=== PATIENT | female | born 1955 | race Caucasian/White ===

== ENCOUNTER 2016-11-25 19:27 | Emergency (ER) | payer BC ==
[2016-11-25 19:43] VITALS: BP 109/51; PULSE 61; RESP 18; TEMP 97
--- NOTE | 2016-11-25 19:52 | ED ---
General Adult HPI - General Chief complaint: Extremity Injury, Lower Stated complaint: Slip/Fall Ankel Pain Time Seen by Provider: 11/25/16 19:45 Source: patient, RN notes reviewed Mode of arrival: ambulatory Limitations: no limitations - History of Present Illness Initial comments: Patient's a 61-year-old female who presents emergency room today with a chief complaint of a fall that occurred approximate half an hour ago. Does not that she slipped off the deck landing on her ankles bilaterally awkwardly. She does admit to increased pain to both right and left sides. Denies any other complaints or injuries. Denies any other symptoms. Patient denies any recent fever, chills, shortness of breath, chest pain, back pain, abdominal pain, nausea or vomiting, numbness or tingling, dysuria or hematuria, constipation or diarrhea, headaches or visual changes, or any other complaints. - Related Data Home Medications Medication Instructions Recorded Confirmed Escitalopram [Lexapro] 10 mg PO HS 09/03/15 11/25/16 Nadolol [Corgard] 20 mg PO BID 09/03/15 11/25/16 Topiramate [Topamax] 50 mg PO BID 12/23/15 11/25/16 Rizatriptan Benzoate [Maxalt] 10 mg PO DAILY PRN 09/20/16 11/25/16 Allergies Allergy/AdvReac Type Severity Reaction Status Date / Time codeine AdvReac Nausea & Verified 11/25/16 19:43 Vomiting Review of Systems ROS Statement: Those systems with pertinent positive or pertinent negative responses have been documented in the HPI. ROS Other: All systems not noted in ROS Statement are negative. Past Medical History Past Medical History: CVA/TIA, GERD/Reflux Additional Past Medical History / Comment(s): IBS, migraine headaches, TIA 4 yrs. ago, sinus problems, antral ulcer. History of Any Multi-Drug Resistant Organisms: None Reported Past Surgical History: Breast Surgery, Hysterectomy Additional Past Surgical History / Comment(s): 12/24/15 HEMORROIDECTOMY, Brian Fundoplasty, Cataract surg bilaterally with lens implants, RK bilaterally, EGDs- last one 07/31/16, and colonoscopies, R breast bx benign. Past Anesthesia/Blood Transfusion Reactions: Motion Sickness, Postoperative Nausea & Vomiting (PONV) Past Psychological History: No Psychological Hx Reported Additional Psychological History / Comment(s): NO PROBLEMS AT THIS TIME Smoking Status: Never smoker Past Alcohol Use History: None Reported Past Drug Use History: None Reported - Past Family History Mother Family Medical History: Unable to Obtain Additional Family Medical History / Comment(s): Patient was adopted. General Exam - General Exam Comments Initial Comments: General: The patient is awake and alert, in no distress, and does not appear acutely ill. Neck: The neck is supple, there is no tenderness or JVD. Cardiovascular: There is a regular rate and rhythm. No murmur, rub or gallop is appreciated. Respiratory: Lungs are clear to auscultation, respirations are non-labored, breath sounds are equal. No wheezes, stridor, rales, or rhonchi. Musculoskeletal: Patient does have moderate swelling to the right lateral malleolus. Shows good range of motion both plantar and dorsiflexion in the ankles bilaterally. No tenderness to the knees bilaterally. No tenderness down to the right foot. Mild tenderness to the proximal metatarsals of the second through fourth. Patient does have mild tenderness over the lateral malleolus on the left. No tenderness to the medial or lateral malleolus on the right. Tender in the ATFL and right. Sensations intact with pulses equal bilaterally 2+. Neurological: A&O x 3. CN II-XII intact, There are no obvious motor or sensory deficits. Coordination appears grossly intact. Speech is normal. Skin: Skin is warm and dry and no rashes or lesions are noted. Psychiatric: Normal mood and affect. Limitations: no limitations Course Vital Signs 11/25/16 19:40 Temperature 97.0 F L Pulse Rate 61 Respiratory 18 Rate Blood Pressure 109/51 O2 Sat by Pulse 98 Oximetry Medical Decision Making - Medical Decision Making Case discussed in detail with attending physician Dr. Beard. Patient's x-rays reviewed and does show a distal fibula fracture on the right nondisplaced. Results were discussed with the patient is been splinted in a short leg posterior OCL splint. Neurovascular rechecked and intact. Patient's x-rays of the left ankle are negative. X-ray of the left foot does show an avulsion type fracture on the lateral side. Due to splint being on the right patient has had Jonathon wrap placed on the left show she will be able to perform necessary functions. Patient advised to follow-up with orthopedics in the next 2 days. Given crutches. Disposition Clinical Impression: Ankle fracture, right, Foot fracture, left Disposition: HOME SELF-CARE Condition: Good Instructions: Ankle Fracture (ED) Additional Instructions: Please follow-up with the orthopedics in the next 2 days. Please leave splint placed a follow-up appointment. Please continue to ice and elevate the affected areas as discussed. Please return to emergency room if any symptoms increase or worsen or for any other concerns. Referrals: Zohreh Connors DO [Primary Care Provider] - 1-2 days Elver Galarza DO [Doctor of Osteopathic Medicine] - 1-2 days Time of Disposition: 21:00
--- NOTE | 2016-11-25 20:26 | XR ---
EXAMINATION TYPE: 3 views right ankle. 3 views left ankle. 3 views left foot. DATE OF EXAM: 11/25/2016 8:11 PM COMPARISON: NONE HISTORY: 61-year-old female with bilateral ankle and left foot pain and swelling since fall down step s today. FINDINGS: Right ankle: Minimally displaced oblique fracture distal fibular shaft with a nondisplaced fracture of the posteri or malleolus as well. Associated soft tissue swelling. There is also underlying tibiotalar joint effu nancy. Subtalar joint is aligned and there is small delineation to the Achilles tendon. Left ankle: Ankle mortise remains congruent with preservation of the distal tibiofibular overlap. There is mild d orsal hindfoot soft tissue swelling. Subtalar joint is aligned. No acute fracture, subluxation, or di slocation seen. Left foot: Mild degenerative change at the first MTP joint. Small 4 mm ossific density lateral aspect of the ant erior calcaneus on the AP view. Otherwise, no acute fracture, subluxation, or dislocation. IMPRESSION: 1. Right ankle: Minimally displaced oblique fracture distal fibular shaft and a nondisplaced fracture of the posterior malleolus. Consider a medial stress view to ensure that the deltoid ligament remain s intact and exclude a trimalleolar equivalent. 2. Left ankle: No acute osseous abnormality seen. 3. Left foot: Tiny 4 mm ossific density lateral aspect of the anterior calcaneus on the AP view. Find ings could represent a tiny chip fracture or capsular avulsion fracture relating to the calcaneocuboi d joint. Otherwise, no acute osseous abnormality seen.
== END 2016-11-25 21:11 | disposition home or self-care (01) ==
LOC: EC 19:27
DX: S82.831A Other fracture of upper and lower end of right fibula, initial encounter for closed fracture (principal); S92.812A Other fracture of left foot, initial encounter for closed fracture; Z79.899 Other long term (current) drug therapy; Z88.5 Allergy status to narcotic agent; W01.0XXA Fall on same level from slipping, tripping and stumbling without subsequent striking against object, initial encounter; Y92.009 Unspecified place in unspecified non-institutional (private) residence as the place of occurrence of the external cause
CPT/HCPCS: 29515; 99283

== ENCOUNTER → 2016-11-27 | Outpatient (CLI) | payer BC ==
[2016-11-27 12:41] LABS: EKG EKG PERFORMED
[2016-11-27 13:07] LABS: Basophils # (A) 0.1 k/uL (0-0.2); Basophils % (A) 1 %; CH 28.9; CHCM 31.6; Eosinophils # (A) 0.1 k/uL (0-0.7); Eosinophils % (A) 2 %; HCT 40.5 % (34.0-46.0); HDW 2.44; HGB 12.9 gm/dL (11.4-16.0); Luc # (Auto) 0.16; Luc % (Auto) 3; Lymphocytes # (A) 1.8 k/uL (1.0-4.8); Lymphocytes % (A) 27 %; MCH 29.1 pg (25.0-35.0); MCHC 31.7 g/dL (31.0-37.0); MCV 91.8 fL (80.0-100.0); Mean Platelet Volume 8.6; Monocytes # (A) 0.4 k/uL (0-1.0); Monocytes % (A) 5 %; Neutrophils # (A) 4.1 k/uL (1.3-7.7); Neutrophils % (A) 62 %; RBC 4.41 m/uL (3.80-5.40); RDW 12.8 % (11.5-15.5); WBC 6.6 k/uL (3.8-10.6); WBC (Perox) 7.03
[2016-11-27 13:15] LABS: Chloride 112 mmol/L (98-107); Potassium 4.5 mmol/L (3.5-5.1); Sodium 145 mmol/L (137-145)
[2016-11-27 13:34] LABS: Anion Gap 11 mmol/L; Carbon Dioxide 22 mmol/L (22-30)
== END ==
LOC: LABPAT 12:17
PROVIDERS: ATTEND Orthopaedic Surgery
DX: Z01.810 Encounter for preprocedural cardiovascular examination (principal); Z01.812 Encounter for preprocedural laboratory examination
CPT/HCPCS: 80051; 85025; 93005

== ENCOUNTER 2016-11-29 11:49 | Observation (INO) | payer BC ==
--- NOTE | 2016-11-29 08:58 | HP ---
DATE OF ADMISSION: CHIEF COMPLAINT: Right ankle pain. HISTORY OF PRESENT ILLNESS: The patient is a 61-year-old recently retired female who presents after injuring her right ankle on 11/25/2016 after falling down some steps on her deck at home. Initially, she was seen in the emergency room and was placed into a splint for her right ankle. She has been nonweightbearing on it since. She denies previous injury. Past medical history is significant for migraines and hypertension. Past surgical history is negative. CURRENT MEDICATIONS: 1. Luxora. 2. Topamax. 3. Nadolol. She denies drug allergies. Family history is unknown. SOCIAL HISTORY: Negative for current tobacco or alcohol use. A 16-point review of systems otherwise reviewed and is noncontributory. On examination, the patient is approximately 5 foot 5, 120 pounds of mesomorphic habitus. HEENT exam is nonfocal. Neck is supple. She has painless passive motion of her right hip. She is nontender about the right knee and proximal fibula. On examination of her right ankle, she has moderate lateral swelling and ecchymosis. She is tender over the distal fibula. She is also tender about the posterior medial malleolus. Mild medial swelling is noted. No mid or forefoot tenderness is noted. Her distal neurovascular exam appears intact in the right lower extremity. Three views of the right ankle obtained in the office show a lateral malleolar fracture with 1 to 2 mm lateral displacement. There is an additional posterior malleolar fracture with minimal displacement. The medial clear space is 3 mm. IMPRESSION: Right lateral malleolar ankle fracture - mildly displaced. RECOMMENDATIONS: I talked to the patient at length regarding her treatment options. At this point, I recommend proceeding with surgical intervention. We will plan to proceed with open reduction and internal fixation. We will likely keep the patient for a 23-hour hold postoperatively. Risks and benefits were discussed at length in layman's terms.
[~2016-11-29 11:49] MED LIST: ceFAZolin 1,000 MG in DEXTROSE/WATER 1 50ML.BAG IV ONE
[2016-11-29] MEDS ORDERED: SCOPOLAMINE 1.5MG/72HR PATCH TRANSDERM ONE (12:27)
[2016-11-29] MEDS ORDERED: DEXAMETHASONE SOD PHOSPHATE 10 MG/ML 1 ML VIAL IV ONE (12:27)
[2016-11-29] MEDS ORDERED: FAMOTIDINE 20 MG/2 ML VIAL IV PRN (12:27)
[2016-11-29] MEDS ORDERED: LIDOCAINE 1% 20 ML VIAL (10MG/ML) FOR IV START INTRADERMA PRN (12:27)
[2016-11-29] MEDS ORDERED: MIDAZOLAM 2 MG/2 ML VIAL IV PRN (12:27)
[2016-11-29] MEDS: LACTATED RINGERS 1,000 ML IV SCH (12:32)
[2016-11-29] MEDS ORDERED: ONDANSETRON 4 MG/2 ML VIAL IVP ONE (12:34)
[2016-11-29] MEDS ORDERED: PROPOFOL 10 MG/ML 20 ML VIAL IV ONE (13:39)
[2016-11-29] MEDS ORDERED: fentaNYL (PF) 50 MCG/ML 2 ML AMP ONE (13:39)
[2016-11-29] MEDS ORDERED: LIDOCAINE 1% INJ 10MG/ML (20 ML MDV) ONE (13:39)
[2016-11-29] MEDS ORDERED: MIDAZOLAM 2 MG/2 ML VIAL ONE (13:39)
[2016-11-29] MEDS ORDERED: ePHEDrine 50 MG/ML 1 ML AMP ONE (13:39)
[2016-11-29] MEDS ORDERED: GLYCOPYRROLATE 0.2 MG/ML 2 ML VIAL ONE (13:39)
[2016-11-29] MEDS ORDERED: ceFAZolin 1,000 MG in SODIUM CHLORIDE 0.9% 1,000 ML IRRIGATION ONE (14:02)
[2016-11-29] MEDS ORDERED: ONDANSETRON 4 MG/2 ML VIAL IVP PRN (14:51)
[2016-11-29] MEDS ORDERED: MORPHINE SULFATE 2 MG/ML SYRINGE IV PRN ×2 (14:51)
[2016-11-29] MEDS ORDERED: HYDROcodone/APAP 5-325MG 1 EACH TAB PO PRN ×2 (14:51)
[2016-11-29] MEDS ORDERED: NALOXONE 0.4 MG/ML 1 ML VIAL IV PRN (14:51)
--- NOTE | 2016-11-29 14:51 | P.OP ---
Date of Procedure: 11/29/16 Preoperative Diagnosis: Right displaced lateral malleolar ankle fracture Postoperative Diagnosis: Same Procedure(s) Performed: Open reduction and internal fixation right lateral malleolar ankle fracture Implants: Brent 7-hole one third tubular plate Anesthesia: MAYTE Surgeon: Jese Parra Estimated Blood Loss (ml): 10 Pathology: none sent Condition: stable Disposition: PACU Indications for Procedure: The patient is a 61-year-old female who presents after recently falling down the stairs injuring her right ankle. Upon evaluation she was noted have a mildly displaced right lateral malleolar ankle fracture. A discussion of the risks and benefits of operative intervention versus attempted conservative measures was made with patient. She opted to proceed with surgery. Operative risks to include infection, neurovascular injury, development of blood clots, possible need for subsequent procedures was discussed. Informed consent was obtained. Operative Findings: As below Description of Procedure: The patient was brought to the operating room, and after induction of general anesthesia, the right lower extremity was prepped and draped in normal fashion. The tourniquet was inflated to 270 mmHg. A longitudinal incision extending approximately 8 cm was then made centered over the distal fibula. The skin was incised sharply. Subcutaneous tissues were divided bluntly. Electrocautery was used for hemostasis. The fracture site was identified and cleaned of clot and debris. The periosteum was elevated to facilitate exposure. Provisional reduction was obtained with a reduction clamp. An anterior to posterior lag screw was placed utilizing a 3.5 mm cortical screw of the appropriate length. A 7-hole one third tubular plate was placed in a neutralization fashion on the lateral distal fibula. It was attached proximally with 3.5 mm cortical screws the appropriate length and distally with 4.0 mm cancellus screws the appropriate length. Final fluoroscopic views to include AP, lateral, and mortise views showed adequate reduction of the fracture and the ankle mortise. The wound was irrigated normal saline. The subcutaneous tissues reapproximated interrupted 2-0 Vicryl sutures. The skin was reprepped with 3-0 subcuticular strata fix suture. Skin tape and adhesive was applied. A sterile dressing was applied in addition to a bulky splint. The tourniquet was deflated less than 45 minutes total tourniquet time. The patient was awoken from general anesthesia and transferred to the recovery room in good condition. Blood loss was estimated at 10 mL. No complications were incurred. Sponge and needle counts were correct in the case.
[2016-11-29] MEDS: HYDROmorphone 1 MG/ML 1 ML SYRINGE IVP PRN ×2 (14:58→15:05)
[2016-11-29] MEDS ORDERED: KETOROLAC 30 MG/ML 1 ML VIAL IVP ONE (15:20)
--- NOTE | 2016-11-29 15:32 | XR ---
EXAMINATION TYPE: XR ankle limited RT DATE OF EXAM: 11/29/2016 2:48 PM COMPARISON: 11/25/2016 HISTORY: ORIF right ankle TECHNIQUE: 2 views submitted FINDINGS: Postsurgical changes seen involving the distal fibula. Alignment near-anatomic. One screw d oes appear to be outside of the fixation plate. IMPRESSION: Postoperative change
[2016-11-29 15:47] VITALS: RESP 16
[2016-11-29] MEDS: ceFAZolin 2 GM in SODIUM CHLORIDE 0.9% 100 ML IVPB SCH (23:54)
[2016-11-30] MEDS: MORPHINE SULFATE 4 MG/ML SYRINGE IV PRN ×2 (00:05→05:20)
[2016-11-30] MEDS: ceFAZolin 2 GM in SODIUM CHLORIDE 0.9% 100 ML IVPB SCH (05:19)
--- NOTE | 2016-11-30 08:48 | FL ---
Fluoroscopy HISTORY: Pain 9 seconds fluoroscopy time supplied to the referring clinician. 2 intraoperative C-arm images docume nt the procedure. See dictated report from orthopedic surgery.
[2016-11-30] MEDS ORDERED: ASPIRIN 325 MG TAB PO SCH (09:00)
--- NOTE | 2016-11-30 11:33 | P.PN ---
Subjective Principal diagnosis: Status post ORIF right lateral malleolus ankle fracture Patient seen today resting in her hospital bed, she appears to be no acute distress. Patient's pain is well-controlled. She denies chest pain, lightheadedness, fever chills. Objective - Vital Signs Vital signs: Vital Signs Temp 98.1 F 11/30/16 07:00 Pulse 62 11/30/16 08:00 Resp 16 11/30/16 08:00 BP 93/50 11/30/16 09:00 Pulse Ox 97 11/30/16 07:00 Intake & Output 11/29/16 11/30/16 11/30/16 18:59 06:59 18:59 Intake Total 1301 250 Output Total 10 200 200 Balance 1291 50 -200 Weight 54.431 kg Intake: IV 1061 Intake, IV Titration 250 Amount Lactated Ringers 1,000 ml 250 @ 20 mls/hr IV .Q24H WATSON Rx#:[id number] Oral 240 Output: Urine 200 200 Estimated Blood Loss 10 Other: Voiding Method Toilet Toilet # Voids 1 1 - Exam Right lower extremity: Splint is in good position, no significant ecchymosis or swelling present in the toes. She is able to wiggle all the toes with no difficulty. Her sensation to light touch is intact. Cap refills less than 3 seconds. Assessment and Plan Plan: Assessment: 1. Postop day #1 status post ORIF right lateral malleolar ankle fracture Plan: 1. Pain control, will be discharged home on oral medication 2. GI and DVT prophylaxis, aspirin 325 mg twice a day for 2 weeks 3. Nonweightbearing right lower extremity, utilize crutches 4. Discussed need for ice and elevation often 5. Discharge planning: She'll be discharged home today Time with Patient: Less than 30
--- NOTE | 2016-11-30 11:39 | P.DS ---
Providers Date of admission: 11/30/16 01:02 Expected date of discharge: 11/30/16 Attending physician: Jese Parra Primary care physician: Zohreh Riverabagh [facility] Course: Date of admission: 11/29/2016 Date of discharge: 11/30/2016 Admission diagnosis: Status post ORIF right lateral malleolus ankle fracture Discharge diagnosis: Same Attending physician: Dr. Parra Surgical procedures: ORIF right lateral malleolus ankle fracture Brief history: Patient is a 61-year-old female who is seen and evaluated in the outpatient setting by Dr. Parra after sustaining a fall in an ankle fracture to her right side. It was decided that surgical treatment would be the best option for this patient, she was scheduled for surgery for 11/29/2016. Hospital course: Details of patient's surgery can be found in operative report. Patient tolerated the procedure well and was subsequently transported to orthopedic floor. Patient's orthopeidc and medical care was provided daily. Patient had daily laboratory tests performed for evaluation of overall blood counts. Patient had daily physical therapy to include strengthening range of motion as well as education with walker ambulation. Patient was treated with aspirin for their postoperative DVT prophylaxis during their inpatient stay. Patient was noted to have a relatively uneventful postoperative course. Patient reported satisfactory pain control with oral pain medications by postoperative day 0. Patient showed satisfactory progress with physical therapy. Patient moved steadily through the program and had no difficulty meeting the goals by postoperative day 1. Given patient's otherwise satisfactory course and having met physical therapy goals, plan is to discharge patient home on postoperative day 1. Discharge condition/disposition: Patient will be discharged home in stable condition. Discharge medications: Instructions are given on resumption of patient's normal daily medications per primary care recommendation, in addition patient will be prescribed [place] 5 mg/325 mg, aspirin 325 mg. Discharge instructions: 1. Wound care and infection precautions, keep incision dry and covered while showering, no lotions, creams, moisturizers. No soaking, tubs, pools, hottubs. Do not scrub over the incision. 2. Nonweightbearing right lower extremity 3. Ice and elevate when necessary. Do not exceed 20 minutes per hour with ice pack. 4. Pain meds and anticoagulants per prescription. 5. Pain medication has potential to cause constipation. Increase oral fluid and fiber intake. Contact primary care provider if you have not had a bowel movement within 48 hours after discharge 6. No anti-inflammatory medication until discussed at first post operative visit, this including Motrin, Aleve, Mobic, Diclofenac, Aspirin. 7. Follow up in office at 2 weeks postop with Vadim Cleaning PA-C 8. Follow up with your primary care doctor 7-10 days after discharge. 9. Contact [facility] with any questions, . Procedures: Open reduction internal fixation right lateral malleolus ankle fracture Patient Condition at Discharge: Good Plan - Discharge Summary New Discharge Prescriptions: Aspirin 325 mg PO BID #40 tab Hydrocodone/Acetaminophen [[place] 5-325] 1 each PO Q6HR PRN #40 tab PRN Reason: Pain Discharge Medication List Escitalopram [Lexapro] 10 mg PO HS 09/03/15 [History] Nadolol [Corgard] 20 mg PO BID 09/03/15 [History] Topiramate [Topamax] 50 mg PO BID 12/23/15 [History] Rizatriptan Benzoate [Maxalt] 10 mg PO DAILY PRN 09/20/16 [History] Ergocalciferol (Vitamin D2) [Vitamin D2] 50,000 unit PO SA 11/28/16 [History] Omeprazole 40 mg PO DAILY 11/28/16 [History] Potassium Chloride [Klor-Con 20] 20 meq PO DAILY 11/28/16 [History] Aspirin 325 mg PO BID #40 tab 11/30/16 [Rx] Hydrocodone/Acetaminophen [[place] 5-325] 1 each PO Q6HR PRN #40 tab 11/30/16 [Rx] Follow up Appointment(s)/Referral(s): Braeden Cleaning PAC [PHYSICIAN LINE MAINTAINER] - 2 Weeks Activity/Diet/Wound Care/Special Instructions: Orthopedic discharge instructions: 1. Do not remove splint at this time 2. Keep splint dry and clean, covered when showering 3. Nonweightbearing right lower extremity, utilize crutches 4. Utilize aspirin 325 mg twice a day until notified 5. Ice and elevate foot often 6. Follow-up with [facility] in 2 weeks Discharge Disposition: HOME SELF-CARE
[2016-11-30 15:19] VITALS: BP 104/54; PULSE 81; TEMP 99
[2016-11-30] MEDS: LACTATED RINGERS 1,000 ML IV SCH (15:44)
== END 2016-11-30 19:59 | disposition home or self-care (01) ==
LOC: OR 11:49 → 3SUR 14:48 → OR 11-30 01:02 → 3SUR 11-30 01:02
PROVIDERS: ADMIT Orthopaedic Surgery; ATTEND Orthopaedic Surgery
DX: S82.61XA Displaced fracture of lateral malleolus of right fibula, initial encounter for closed fracture (principal); W10.8XXA Fall (on) (from) other stairs and steps, initial encounter; Y92.008 Other place in unspecified non-institutional (private) residence as the place of occurrence of the external cause; I10 Essential (primary) hypertension
CPT/HCPCS: 73600; 27792; G0378; C1713; J2250; J2270 ×2; J1100; J0690 ×4; J2405; J2001; J3010; J1885; J1170; J2704; 96374

== ENCOUNTER 2017-01-29 11:52 | Emergency (ER) | payer BC ==
[2017-01-29 12:05] VITALS: RESP 16
[2017-01-29] MEDS ORDERED: ONDANSETRON 4 MG/2 ML VIAL IVP STA (12:16)
[2017-01-29] MEDS ORDERED: MORPHINE SULFATE 2 MG/ML SYRINGE IVP STA (12:16)
[2017-01-29] MEDS ORDERED: KETOROLAC 30 MG/ML 1 ML VIAL IVP STA (12:16)
[2017-01-29] MEDS ORDERED: SODIUM CHLORIDE 0.9% 1,000 ML IV STA (12:16)
[2017-01-29 12:48] LABS: Basophils # (A) 0.1 k/uL (0-0.2); Basophils % (A) 1 %; CHCM 32.1; Eosinophils # (A) 0.2 k/uL (0-0.7); Eosinophils % (A) 2 %; HDW 2.22; HGB 13.6 gm/dL (11.4-16.0); Luc # (Auto) 0.21; Luc % (Auto) 3; Lymphocytes # (A) 2.3 k/uL (1.0-4.8); Lymphocytes % (A) 36 %; MCH 28.6 pg (25.0-35.0); MCHC 31.5 g/dL (31.0-37.0); MCV 90.8 fL (80.0-100.0); Mean Platelet Volume 8.1; Monocytes # (A) 0.3 k/uL (0-1.0); Monocytes % (A) 5 %; Neutrophils # (A) 3.4 k/uL (1.3-7.7); Neutrophils % (A) 52 %; RBC 4.74 m/uL (3.80-5.40); RDW 13.2 % (11.5-15.5); WBC 6.5 k/uL (3.8-10.6); WBC (Perox) 6.38
--- NOTE | 2017-01-29 12:48 | ED ---
Abdominal Pain HPI - General Chief Complaint: Abdominal Pain Stated Complaint: back pain Time Seen by Provider: 01/29/17 12:12 Source: patient, family, RN notes reviewed Mode of arrival: ambulatory Limitations: no limitations - History of Present Illness Initial Comments: 61-year-old female presents emergency Department template left flank pain. Patient is felt like she had some urinary urgency frequency this morning but states that she developed severe left flank pain. She has a history kidney stones. She states the pain feels very similar. Patient states that she now has nausea and vomiting. Patient unable take anything for the pain after the pain started but did take some acetaminophen earlier this morning. Patient denies fever, chills, chest pain or shortness of breath. Patient had prior hysterectomy, appendectomy. - Related Data Home Medications Medication Instructions Recorded Confirmed Escitalopram [Lexapro] 10 mg PO HS 09/03/15 01/29/17 Nadolol [Corgard] 20 mg PO BID 09/03/15 01/29/17 Topiramate [Topamax] 50 mg PO BID 12/23/15 01/29/17 Omeprazole 40 mg PO DAILY 11/28/16 01/29/17 Potassium Chloride [Klor-Con 20] 20 meq PO DAILY 11/28/16 01/29/17 Magnesium 200 mg PO DAILY 01/29/17 01/29/17 Previous Rx's Medication Instructions Recorded Hydrocodone/Acetaminophen [Stella 1 tab PO Q6HR PRN #20 tab 01/29/17 5-325] Ketorolac [Toradol] 10 mg PO Q8HR #15 tab 01/29/17 Ondansetron Odt [Zofran Odt] 4 mg PO Q8HR PRN #10 tab 01/29/17 Allergies Allergy/AdvReac Type Severity Reaction Status Date / Time codeine AdvReac Nausea & Verified 01/29/17 12:33 Vomiting Review of Systems ROS Statement: Those systems with pertinent positive or pertinent negative responses have been documented in the HPI. ROS Other: All systems not noted in ROS Statement are negative. Past Medical History Past Medical History: CVA/TIA, GERD/Reflux Additional Past Medical History / Comment(s): IBS, migraine headaches, TIA 4 yrs. ago, sinus problems, ulcer. fell 11/25/16 fx mario ankles- has cast on rt and using wheelchair History of Any Multi-Drug Resistant Organisms: None Reported Past Surgical History: Breast Surgery, Hysterectomy Additional Past Surgical History / Comment(s): HEMORROIDECTOMY, Brian Fundoplasty, Cataract surg bilaterally with lens implants, RK bilaterally, Rt breast bx Past Anesthesia/Blood Transfusion Reactions: Motion Sickness, Postoperative Nausea & Vomiting (PONV) Past Psychological History: No Psychological Hx Reported Additional Psychological History / Comment(s): . Smoking Status: Never smoker Past Alcohol Use History: None Reported Past Drug Use History: None Reported - Past Family History Mother Family Medical History: Unable to Obtain Additional Family Medical History / Comment(s): Patient was adopted. General Exam Limitations: no limitations General appearance: alert, in no apparent distress Respiratory exam: Present: normal lung sounds bilaterally. Absent: respiratory distress, wheezes, rales, rhonchi, stridor Cardiovascular Exam: Present: regular rate, normal rhythm, normal heart sounds. Absent: systolic murmur, diastolic murmur, rubs, gallop, clicks GI/Abdominal exam: Present: soft, tenderness (Mild left lower quadrant, left flank tenderness), normal bowel sounds. Absent: distended, guarding, rebound, rigid Back exam: Present: CVA tenderness (L). Absent: CVA tenderness (R) Neurological exam: Present: alert, oriented X3, CN II-XII intact Skin exam: Present: warm, dry, intact, normal color. Absent: rash Course Vital Signs 01/29/17 12:03 Temperature 97.8 F Pulse Rate 62 Respiratory 16 Rate Blood Pressure 133/61 O2 Sat by Pulse 99 Oximetry - Reevaluation(s) Reevaluation #1: 01/29/17 13:02 Patient was reevaluated after results. Patient's pain is improved at this time. Pending urinalysis, lab work. xray Does show 2 mm stone. Medical Decision Making - Medical Decision Making 61-year-old female presented for left flank pain. Patient has hematuria, stone x-ray. Patient has a history of kidney stones. Patient lab work within normal limits. There is no evidence of urinary tract infection. Patient will be discharged at this time with return parameters. Patient will follow-up with urology if needed. - Lab Data Result diagrams: 01/29/17 12:35 01/29/17 12:35 Lab Results 01/29/17 01/29/17 01/29/17 Range/Units 12:35 12:35 13:21 WBC 6.5 (3.8-10.6) k/uL RBC 4.74 (3.80-5.40) m/uL Hgb 13.6 (11.4-16.0) gm/dL Hct 43.0 (34.0-46.0) % MCV 90.8 (80.0-100.0) fL MCH 28.6 (25.0-35.0) pg MCHC 31.5 (31.0-37.0) g/dL RDW 13.2 (11.5-15.5) % Plt Count 239 (150-450) k/uL Neutrophils % 52 % Lymphocytes % 36 % Monocytes % 5 % Eosinophils % 2 % Basophils % 1 % Neutrophils # 3.4 (1.3-7.7) k/uL Lymphocytes # 2.3 (1.0-4.8) k/uL Monocytes # 0.3 (0-1.0) k/uL Eosinophils # 0.2 (0-0.7) k/uL Basophils # 0.1 (0-0.2) k/uL Sodium 141 (137-145) mmol/L Potassium 4.9 (3.5-5.1) mmol/L Chloride 109 H (98-107) mmol/L Carbon Dioxide 23 (22-30) mmol/L Anion Gap 9 mmol/L BUN 22 H (7-17) mg/dL Creatinine 0.95 (0.52-1.04) mg/dL Est GFR (MDRD) Af Amer >60 (>60 ml/min/1.73 sqM) Est GFR (MDRD) Non-Af 60 (>60 ml/min/1.73 sqM) Glucose 111 H (74-99) mg/dL Calcium 9.9 (8.4-10.2) mg/dL Total Bilirubin 0.4 (0.2-1.3) mg/dL AST 32 (14-36) U/L ALT 29 (9-52) U/L Alkaline Phosphatase 85 (38-126) U/L Total Protein 7.6 (6.3-8.2) g/dL Albumin 4.5 (3.5-5.0) g/dL Amylase 58 (30-110) U/L Lipase 96 (23-300) U/L Urine Color Yellow Urine Appearance Clear (Clear) Urine pH 6.5 (5.0-8.0) Ur Specific Dickson 1.015 (1.001-1.035) Urine Protein Trace H (Negative) Urine Glucose (UA) Negative (Negative) Urine Ketones Negative (Negative) Urine Blood Moderate H (Negative) Urine Nitrite Negative (Negative) Urine Bilirubin Negative (Negative) Urine Urobilinogen <2.0 (<2.0) mg/dL Ur Leukocyte Esterase Negative (Negative) Urine RBC 59 H (0-5) /hpf Urine WBC 1 (0-5) /hpf Ur Squamous Epith Cells <1 (0-4) /hpf Urine Mucus Few H (None) /hpf Disposition Clinical Impression: Ureteral calculi, Kidney stone on left side Disposition: HOME SELF-CARE Condition: Stable Instructions: Kidney Stones (ED) Additional Instructions: Please return to the Emergency Department if symptoms worsen or any other concerns. Prescriptions: Hydrocodone/Acetaminophen [Stella 5-325] 1 tab PO Q6HR PRN #20 tab PRN Reason: Pain Ketorolac [Toradol] 10 mg PO Q8HR #15 tab Ondansetron Odt [Zofran Odt] 4 mg PO Q8HR PRN #10 tab PRN Reason: Nausea Referrals: Zohreh Connors DO [Primary Care Provider] - 1-2 days Chang Chilel MD [STAFF PHYSICIAN] - 1-2 days Time of Disposition: 13:39
--- NOTE | 2017-01-29 12:56 | XR ---
EXAMINATION TYPE: XR KUB DATE OF EXAM ORDERED: 01/29/2017 12:47 PM HISTORY: abdominal pain. COMPARISON: Previous CT scan of the abdomen and pelvis dated 12/21/2009. FINDINGS: The abdominal gas pattern is within normal limits. There is no evidence of obstruction or free air. There are 2 small 2 mm calcifications over the left lower pole renal outline. IMPRESSION: I CANNOT EXCLUDE LEFT-SIDED NEPHROLITHIASIS.
[2017-01-29 13:03] LABS: ALT 29 U/L (9-52); AST 32 U/L (14-36); Alkaline Phosphatase 85 U/L (38-126); Amylase 58 U/L (30-110); Anion Gap 9 mmol/L; Blood Urea Nitrogen 22 mg/dL (7-17); Calcium 9.9 mg/dL (8.4-10.2); Carbon Dioxide 23 mmol/L (22-30); Chloride 109 mmol/L (98-107); Glucose 111 mg/dL (74-99); Non-African American GFR(MDRD) 60 (>60 ml/min/1.73 sqM); Potassium 4.9 mmol/L (3.5-5.1); Sodium 141 mmol/L (137-145); Total Bilirubin 0.4 mg/dL (0.2-1.3); Total Protein 7.6 g/dL (6.3-8.2)
[2017-01-29 13:34] LABS: Appearance,Urine Clear (Clear); Bilirubin,Urine Negative (Negative); Glucose,Urine (UA) Negative (Negative); Ketones,Urine Negative (Negative); Leukocyte Esterase,Urine Negative (Negative); Mucus,Urine Few /hpf; Nitrite,Urine Negative (Negative); PH, Urine 6.5 (5.0-8.0); Particle Count 6230; Protein,Urine Trace (Negative); RBC,Urine 59 /hpf (0-5); Specific Gravity,Urine 1.015 (1.001-1.035); Squamous Epithelial Cell,Urine <1 /hpf (0-4); UA Billing (MACRO vs. MICRO) MICRO; Urobilinogen,Urine <2.0 mg/dL (<2.0); WBC,Urine 1 /hpf (0-5)
[2017-01-29 13:47] VITALS: BP 98/47; PULSE 56; TEMP 97.2
== END 2017-01-29 13:47 | disposition home or self-care (01) ==
LOC: EC 11:52
DX: N20.2 Calculus of kidney with calculus of ureter (principal); K21.9 Gastro-esophageal reflux disease without esophagitis; Z79.899 Other long term (current) drug therapy; Z88.5 Allergy status to narcotic agent; Z87.19 Personal history of other diseases of the digestive system
CPT/HCPCS: 36415; 80053; 82150; 83690; 85025; 81001; 74000; 99284; 96374; 96375 ×2; 96361; J2405; J1885; J2270

== ENCOUNTER → 2017-08-07 | Outpatient (CLI) | payer BC ==
--- NOTE | 2017-08-08 12:21 | MM ---
Reason for exam: screening (asymptomatic). Last mammogram was performed 1 year and 2 months ago. History: Patient is postmenopausal. Cyst aspiration of the left breast. Cyst aspiration of the right breast. Excisional biopsy of the right breast. Physical Findings: A clinical breast exam by your physician is recommended on an annual basis and results should be correlated with mammographic findings. MG 3D Screening Mammo W/Cad Bilateral CC and MLO view(s) were taken. Prior study comparison: May 30, 2016, bilateral MG 3d screening mammo w/cad. March 04, 2014, bilateral MG screening mammo w CAD. 5mm focal asymmetry with distortion in the upper central left breast on 3D MLO image 18/60 and likely lateral on 3D images CC view. Post surgical change right breast. ASSESSMENT: Incomplete: need additional imaging evaluation, BI-RAD 0 RECOMMENDATION: Special view mammogram of the left breast. If lesion persists on supplemental views, image directed ultrasound is recommended. [facility] will attempt to contact patient to return for supplemental views and ultrasound if indicated.
== END | disposition home or self-care (01) ==
LOC: RADMAMWWP 10:53
PROVIDERS: ATTEND Family Medicine
DX: Z12.31 Encounter for screening mammogram for malignant neoplasm of breast (principal)
CPT/HCPCS: 77063; G0202

== ENCOUNTER → 2017-08-16 | Outpatient (CLI) | payer BC ==
--- NOTE | 2017-08-17 07:17 | MM ---
Reason for exam: additional evaluation requested from abnormal screening. Last mammogram was performed less than 1 month ago. History: Patient is postmenopausal. Cyst aspiration of the left breast. Cyst aspiration of the right breast. Excisional biopsy of the right breast. Physical Findings: A clinical breast exam by your physician is recommended on an annual basis and results should be correlated with mammographic findings. MG 3D Work Up W/Cad LT Spot compression CC, spot compression MLO, and LM view(s) were taken of the left breast. Prior study comparison: August 07, 2017, bilateral MG 3d screening mammo w/cad. May 30, 2016, bilateral MG 3d screening mammo w/cad. The breast tissue is heterogeneously dense. This may lower the sensitivity of mammography. No suspicious abnormality. The previously seen upper outer qudrant focal asymmetry of the left breast resolves on additional vies and appears as fibroglandular tissue. These results were verbally communicated with the patient and result sheet given to the patient on 08/16/17. ASSESSMENT: Negative, BI-RAD 1 RECOMMENDATION: Return to routine screening mammogram schedule for both breasts.
== END | disposition home or self-care (01) ==
LOC: RADMAMWWP 14:39
PROVIDERS: ATTEND Family Medicine
DX: R92.8 Other abnormal and inconclusive findings on diagnostic imaging of breast (principal)
CPT/HCPCS: G0206; G0279

== ENCOUNTER → 2019-03-18 | Outpatient (CLI) | payer BC ==
--- NOTE | 2019-03-19 09:28 | MM ---
Reason for exam: screening (asymptomatic). Last mammogram was performed 1 year and 7 months ago. History: Patient is postmenopausal. Cyst aspiration of the left breast. Cyst aspiration of the right breast. Excisional biopsy of the right breast. Physical Findings: A clinical breast exam by your physician is recommended on an annual basis and results should be correlated with mammographic findings. MG 3D Screening Mammo W/Cad Bilateral CC and MLO view(s) were taken. Prior study comparison: August 16, 2017, left breast MG 3d work up w/cad LT. August 07, 2017, bilateral MG 3d screening mammo w/cad. The breast tissue is heterogeneously dense. This may lower the sensitivity of mammography. Finding: Stable architectural distortion in the right breast consistent with previous excisional biopsy. ASSESSMENT: Benign, BI-RAD 2 RECOMMENDATION: Routine screening mammogram of both breasts in 1 year.
== END | disposition home or self-care (01) ==
LOC: RADMAMWWP 14:39
PROVIDERS: ATTEND Family Medicine
DX: Z12.31 Encounter for screening mammogram for malignant neoplasm of breast (principal)
CPT/HCPCS: 77063; 77067

== ENCOUNTER → 2020-05-06 | Outpatient (CLI) | payer MEDICARE, BC ==
--- NOTE | 2020-05-06 10:11 | FL ---
EXAMINATION TYPE: FL barium swallow DATE OF EXAM: 05/06/2020 CLINICAL HISTORY: Dysphagia. History of Dario fundoplication surgery 2007. TECHNIQUE: A single contrast esophagram is performed utilizing barium due to prior surgical history. A total of roughly 35 seconds of fluoroscopic time was utilized during procedure. 49 spot images sa derik to PACS. COMPARISON: Abdominal x-ray January 29, 2017. CT December 21, 2009. FINDINGS: The esophagus shows some dysmotility with abnormal secondary tertiary contractions particul mason when patient drinks in prone position. No evidence of recurrent hiatal hernia or stricture noted . No intraluminal mass. No significant gastroesophageal reflux was seen during real time performance of this study. Overlying bra strap incidentally noted. IMPRESSION: No recurrent and/or fixed hernia.
== END | disposition home or self-care (01) ==
LOC: RADUSWWP 09:44
PROVIDERS: ATTEND Surgery
DX: R13.19 Other dysphagia (principal)
CPT/HCPCS: 74220

== ENCOUNTER 2020-05-20 11:22 | Day surgery (SDC) | payer MEDICARE, BC ==
[2020-05-19 13:39] VITALS: BMI 21.6
[~2020-05-20 11:22] MED LIST changes: +LACTATED RINGERS 1,000 ML IV SCH; -ceFAZolin 1,000 MG in DEXTROSE/WATER 1 50ML.BAG IV ONE
[2020-05-20 12:03] VITALS: RESP 16; TEMP 97.3
--- NOTE | 2020-05-20 12:19 | P.GSHP ---
History of Present Illness H&P Date: 05/20/20 Chief Complaint: Dysphagia, screening colonoscopy This 65-year-old female presents today for EGD. She's had issues with dysphagia. She states she feels food sometimes being stuck in the esophagus. She will undergo EGD and screening colonoscopy today. Past Medical History Past Medical History: CVA/TIA, GERD/Reflux Additional Past Medical History / Comment(s): IBS, migraine headaches, TIA 8 yrs. ago, sinus problems, ulcer. fell 11/25/16 fx mario ankles. History of Any Multi-Drug Resistant Organisms: None Reported Past Surgical History: Breast Surgery, Hysterectomy Additional Past Surgical History / Comment(s): HEMORRHOIDECTOMY, Brian Fundoplasty, Cataract surg bilaterally with lens implants, RK bilaterally, Rt breast bx. Past Anesthesia/Blood Transfusion Reactions: Motion Sickness, Postoperative Nausea & Vomiting (PONV) Smoking Status: Never smoker - Past Family History Mother Family Medical History: Unable to Obtain Additional Family Medical History / Comment(s): Patient was adopted. Medications and Allergies Home Medications Medication Instructions Recorded Confirmed Type Escitalopram [Lexapro] 10 mg PO HS 05/19/20 05/19/20 History Galcanezumab-Gnlm [Emgality 120 mg SQ QMONTHLY 05/19/20 05/20/20 History Syringe] Allergies Allergy/AdvReac Type Severity Reaction Status Date / Time codeine AdvReac Nausea & Verified 05/20/20 12:01 Vomiting Surgical - Exam Vital Signs Temp Pulse Resp BP Pulse Ox 97.3 F L 98 16 134/74 97 05/20/20 12:03 05/20/20 12:03 05/20/20 12:03 05/20/20 12:03 05/20/20 12:03 - General well developed, well nourished, no distress - Eyes PERRL - ENT normal pinna - Neck no masses - Respiratory normal expansion - Cardiovascular Rhythm: regular - Abdomen Abdomen: soft, non tender Assessment and Plan Assessment: Dysphagia we'll perform EGD. We'll also perform screening colonoscopy
[2020-05-20] MEDS ORDERED: KETOROLAC 30 MG/ML 1 ML VIAL ONE (12:21)
[2020-05-20] MEDS ORDERED: LIDOCAINE 1% INJ 10MG/ML (20 ML MDV) ONE (12:21)
[2020-05-20] MEDS ORDERED: PROPOFOL 10 MG/ML 20 ML VIAL IV ONE (12:21)
--- NOTE | 2020-05-20 12:38 | P.OP ---
Date of Procedure: 05/20/20 Preoperative Diagnosis: Dysphagia. Screening colonoscopy Postoperative Diagnosis: Antral gastritis No evidence of GE junction stricture Diverticulosis Procedure(s) Performed: EGD Colonoscopy Anesthesia: MAC Surgeon: James Rodriguez Pathology: other (Antrum) Condition: stable Disposition: PACU Description of Procedure: Patient's placed on the endoscopy table lateral position. She received IV sedation. The gastroscope placed oropharynx passed in the esophagus and stomach. Scope was placed through the pylorus. The first and second portion of the duodenum appeared normal. Scope was then brought back the antrum this. Plan. A biopsies performed. Scope was unretroflexed and remainder the stomach appeared normal. Due to the patient's symptoms and dysphagia a 20 mm balloon was placed across the GE junction. There is no evidence of any stricture. We'll withdrawn. The distal esophagus. Normal. The proximal esophagus appeared normal. Scope withdrawn for patient. Next digital rectal exam was performed which revealed no abnormalities. Flexible colonoscope was then placed patient anus passed rotator entire colon. The ileocecal valve was visualized. The cecum, ascending and transverse colon appeared normal. In the descending; there is moderate diverticular changes. Scope was then brought back the rectum and this appeared normal. Scope was withdrawn for patient.
[2020-05-20 13:12] VITALS: BP 120/70; PULSE 69
== END 2020-05-20 13:36 | disposition home or self-care (01) ==
LOC: ORWHC2ENDO 11:22
PROVIDERS: ATTEND Surgery
DX: Z12.11 Encounter for screening for malignant neoplasm of colon (principal); K57.30 Diverticulosis of large intestine without perforation or abscess without bleeding; K29.50 Unspecified chronic gastritis without bleeding; K21.9 Gastro-esophageal reflux disease without esophagitis; K58.9 Irritable bowel syndrome, unspecified; Z88.5 Allergy status to narcotic agent; Z79.899 Other long term (current) drug therapy; Z86.73 Personal history of transient ischemic attack (TIA), and cerebral infarction without residual deficits; Z90.710 Acquired absence of both cervix and uterus; Z98.890 Other specified postprocedural states; Z98.41 Cataract extraction status, right eye; Z98.42 Cataract extraction status, left eye; Z96.1 Presence of intraocular lens
CPT/HCPCS: 88305; 43239; 43249; J2001; J1885; J2704; C1726; G0121; 45378

== ENCOUNTER → 2020-09-07 | Outpatient (CLI) | payer MEDICARE, BC ==
--- NOTE | 2020-09-08 11:55 | MM ---
Reason for exam: screening (asymptomatic). Last mammogram was performed 1 year and 6 months ago. History: Patient is postmenopausal. Cyst aspiration of the left breast. Cyst aspiration of the right breast. Excisional biopsy of the right breast. Physical Findings: A clinical breast exam by your physician is recommended on an annual basis and results should be correlated with mammographic findings. MG 3D Screening Mammo W/Cad Bilateral CC and MLO view(s) were taken. Prior study comparison: March 18, 2019, bilateral MG 3d screening mammo w/cad. August 16, 2017, left breast MG 3d work up w/cad LT. There are scattered fibroglandular densities. No significant changes when compared with prior studies. ASSESSMENT: Negative, BI-RAD 1 RECOMMENDATION: Routine screening mammogram of both breasts in 1 year.
== END | disposition home or self-care (01) ==
LOC: RADMAMWWP 07:02
PROVIDERS: ATTEND Family Medicine
DX: Z12.31 Encounter for screening mammogram for malignant neoplasm of breast (principal)
CPT/HCPCS: 77063; 77067

== ENCOUNTER → 2022-01-12 | Outpatient (CLI) | payer MEDICARE, BC ==
--- NOTE | 2022-01-18 09:20 | MM ---
Reason for exam: screening (asymptomatic). Last mammogram was performed 1 year and 4 months ago. History: Patient is postmenopausal. Cyst aspiration of the left breast. Cyst aspiration of the right breast. Excisional biopsy of the right breast. Physical Findings: A clinical breast exam by your physician is recommended on an annual basis and results should be correlated with mammographic findings. MG Screening Mammo w CAD Bilateral CC and MLO view(s) were taken. Prior study comparison: September 07, 2020, bilateral MG 3d screening mammo w/cad. March 18, 2019, bilateral MG 3d screening mammo w/cad. The breast tissue is heterogeneously dense. This may lower the sensitivity of mammography. No significant changes when compared with prior studies. ASSESSMENT: Negative, BI-RAD 1 RECOMMENDATION: Routine screening mammogram of both breasts in 1 year.
== END | disposition home or self-care (01) ==
LOC: RADMAMWWP 07:23
PROVIDERS: ATTEND Family Medicine
DX: Z12.31 Encounter for screening mammogram for malignant neoplasm of breast (principal); Z78.0 Asymptomatic menopausal state
CPT/HCPCS: 77067

== ENCOUNTER → 2022-04-10 | Outpatient (CLI) | payer MEDICARE ==
--- NOTE | 2022-04-10 11:37 | XR ---
EXAMINATION TYPE: XR foot complete RT DATE OF EXAM: 04/10/2022 COMPARISON: 11/25/2016 HISTORY: Pain TECHNIQUE: Three views are submitted. FINDINGS: There is a displaced fracture the proximal phalanx third digit. Small amount callus formation or sujata osteal reaction with persistent nonunion fracture. Calcaneal spur noted. There is evidence of previous surgery involving the distal fibula. There is hyp ertrophic arthropathy first MTP. There is diffuse osteopenia. IMPRESSION: 1. 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
== END | disposition home or self-care (01) ==
LOC: RADXRMAIN 11:06
PROVIDERS: ATTEND Podiatrist Foot Surgery
DX: S92.514 Nondisplaced fracture of proximal phalanx of right lesser toe(s) (principal)

== ENCOUNTER 2022-10-09 13:21 | Emergency (ER) | payer MEDICARE ==
[2022-10-09 13:28] VITALS: TEMP 97.7
[2022-10-09] MEDS ORDERED: KETOROLAC 15 MG/ML 1 ML VIAL IVP STA (13:28)
[2022-10-09] MEDS ORDERED: SODIUM CHLORIDE 0.9% 1,000 ML IV STA (13:28)
[2022-10-09] MEDS ORDERED: ONDANSETRON 4 MG/2 ML VIAL IVP STA (13:28)
[2022-10-09] MEDS ORDERED: SODIUM CHLORIDE 0.9% 500 ML 500 ML IV STA (13:28)
[2022-10-09] MEDS ORDERED: HYDROmorphone 0.5 MG/0.5 ML SYRINGE IVP STA (13:43)
[2022-10-09 14:14] VITALS: RESP 18
[2022-10-09 14:17] LABS: Basophils % (A) 0 %; Eosinophils # (A) 0.1 k/uL (0-0.7); Eosinophils % (A) 1 %; HCT 42.3 % (34.0-46.0); HGB 13.9 gm/dL (11.4-16.0); Lymphocytes # (A) 1.9 k/uL (1.0-4.8); Lymphocytes % (A) 16 %; MCH 29.6 pg (25.0-35.0); MCHC 32.9 g/dL (31.0-37.0); Mean Platelet Volume 8.1; Monocytes # (A) 0.4 k/uL (0-1.0); Monocytes % (A) 4 %; Neutrophils # (A) 9.1 k/uL (1.3-7.7); Neutrophils % (A) 78 %; Platelet Count 362 k/uL (150-450); RDW 12.8 % (11.5-15.5); WBC 11.6 k/uL (3.8-10.6)
[2022-10-09 14:25] LABS: ALT 31 U/L (4-34); AST 31 U/L (14-36); African American GFR (CKD) >90 (>60 ml/min/1.73 sqM); Albumin 4.3 g/dL (3.5-5.0); Alkaline Phosphatase 74 U/L (38-126); Anion Gap 8 mmol/L; Blood Urea Nitrogen 23 mg/dL (7-17); Calcium 8.7 mg/dL (8.4-10.2); Carbon Dioxide 22 mmol/L (22-30); Chloride 107 mmol/L (98-107); Glucose 129 mg/dL (74-99); Lipase 91 U/L (23-300); Non-African American GFR(CKD) >90 (>60 ml/min/1.73 sqM); Potassium 4.6 mmol/L (3.5-5.1); Sodium 137 mmol/L (137-145); Total Bilirubin 0.7 mg/dL (0.2-1.3); Total Protein 7.2 g/dL (6.3-8.2)
[2022-10-09 14:26] LABS: Appearance,Urine Clear (Clear); Bilirubin,Urine Negative (Negative); Blood,Urine Moderate (Negative); Budding Yeast,Urine Rare /hpf; Calcium Oxalate Crystals,Urine Few /hpf; Color,Urine Yellow; Glucose,Urine (UA) Negative (Negative); Ketones,Urine Trace (Negative); Leukocyte Esterase,Urine Negative (Negative); Mucus,Urine Many /hpf; Nitrite,Urine Negative (Negative); PH, Urine 5.5 (5.0-8.0); Protein,Urine 1+ (Negative); RBC,Urine 142 /hpf (0-5); Specific Gravity,Urine 1.027 (1.001-1.035); Squamous Epithelial Cell,Urine 1 /hpf (0-4); Urobilinogen,Urine <2.0 mg/dL (<2.0); WBC,Urine 4 /hpf (0-5)
--- NOTE | 2022-10-09 14:33 | ED ---
Abdominal Pain HPI - General Chief Complaint: Abdominal Pain Stated Complaint: abd pain Time Seen by Provider: 10/09/22 13:27 Source: patient, RN notes reviewed Mode of arrival: ambulatory Limitations: no limitations - History of Present Illness Initial Comments: 67-year-old female presents emergency Department chief complaint of right-sided abdominal and right flank pain. Patient states is a sudden onset. Patient is nausea vomiting nothing feels that it's helping the pain. Patient states she has never had anything like this in the past. She's had no recent urinary frequency or dysuria no reported hematuria Denies fevers or chills she's had no prior appendectomy and cholecystectomy. Patient denies fever denies chest pain - Related Data Home Medications Medication Instructions Recorded Confirmed Escitalopram [Lexapro] 10 mg PO HS 05/19/20 05/19/20 Galcanezumab-Gnlm [Emgality 120 mg SQ QMONTHLY 05/19/20 05/20/20 Syringe] Previous Rx's Medication Instructions Recorded HYDROcodone/APAP 5-325MG [Schurz 5] 1 each PO Q6HR PRN #12 tab 10/09/22 Ketorolac [Toradol] 10 mg PO Q8HR #15 tab 10/09/22 Ondansetron Odt [Zofran Odt] 4 mg PO Q8HR PRN #10 tab 10/09/22 Allergies Allergy/AdvReac Type Severity Reaction Status Date / Time codeine AdvReac Nausea & Verified 05/20/20 12:01 Vomiting Review of Systems ROS Statement: Those systems with pertinent positive or pertinent negative responses have been documented in the HPI. ROS Other: All systems not noted in ROS Statement are negative. Past Medical History Past Medical History: CVA/TIA, GERD/Reflux Additional Past Medical History / Comment(s): IBS, migraine headaches, TIA 8 yrs. ago, sinus problems, ulcer. fell 11/25/16 fx mario ankles. History of Any Multi-Drug Resistant Organisms: None Reported Past Surgical History: Breast Surgery, Hysterectomy Additional Past Surgical History / Comment(s): HEMORRHOIDECTOMY, Brian Fundoplasty, Cataract surg bilaterally with lens implants, RK bilaterally, Rt breast bx. Past Anesthesia/Blood Transfusion Reactions: Motion Sickness, Postoperative Nausea & Vomiting (PONV) Past Psychological History: No Psychological Hx Reported Smoking Status: Never smoker - Past Family History Mother Family Medical History: Unable to Obtain Additional Family Medical History / Comment(s): Patient was adopted. General Exam Limitations: no limitations General appearance: alert, in no apparent distress Head exam: Present: atraumatic, normocephalic, normal inspection Neck exam: Present: normal inspection, full ROM. Absent: tenderness, meningismus, lymphadenopathy Respiratory exam: Present: normal lung sounds bilaterally. Absent: respiratory distress, wheezes, rales, rhonchi, stridor Cardiovascular Exam: Present: regular rate, normal rhythm, normal heart sounds. Absent: systolic murmur, diastolic murmur, rubs, gallop, clicks GI/Abdominal exam: Present: soft, tenderness, normal bowel sounds. Absent: distended, guarding, rebound, rigid Back exam: Present: CVA tenderness (R). Absent: CVA tenderness (L) Neurological exam: Present: alert Skin exam: Present: warm, dry, intact, normal color. Absent: rash Course Vital Signs 10/09/22 10/09/22 10/09/22 13:23 14:14 14:58 Temperature 97.7 F Pulse Rate 88 70 88 Respiratory 20 18 18 Rate Blood Pressure 172/82 133/64 121/84 O2 Sat by Pulse 99 100 100 Oximetry Medical Decision Making - Medical Decision Making Was pt. sent in by a medical professional or institution (KARIN Ugalde, UNDER WATER ASSISTANT, urgent care, hospital, or penitentiary...) When possible be specific @ -No Did you speak to anyone other than the patient for history (EMS, parent, family, police, friend...)? What history was obtained from this source @ -No Did you review nursing and triage notes (agree or disagree)? Why? @ -I reviewed and agree with nursing and triage notes Were old charts reviewed (outside hosp., previous admission, EMS record, old EK G, old radiological studies, urgent care reports/EKG's, penitentiary records)? Report findings @ -No old charts were reviewed Differential Diagnosis (chest pain, altered mental status, abdominal pain women, abdominal pain men, vaginal bleeding, weakness, fever, dyspnea, syncope, headache, dizziness, GI bleed, back pain, seizure, CVA, palpatations, mental health)? @ -Kidney stone, cholelithiasis, cholecystitis, appendicitis, colitis, bowel obstruction, and this list is not all inclusive EKG interpreted by me (3pts min.). @ -As above X-rays interpreted by me (1pt min.). @ -None done CT interpreted by me (1pt min.). @ -CT of the abdomen and pelvis shows evidence of 4 mm obstructing stone on the right, large stool burden U/S interpreted by me (1pt. min.). @ -None done What testing was considered but not performed or refused? (CT, X-rays, U/S, labs)? Why? @ -None What meds were considered but not given or refused? Why? @ -None Did you discuss the management of the patient with other professionals (professionals i.e. Dr., PA, UNDER WATER ASSISTANT, lab, RT, psych nurse, social security benefits interviewer, facility specialist, teacher, supervisor dog license officer, director case)? Give summary @ -No Was smoking cessation discussed for >3mins.? @ -No Was critical care preformed (if so, how long)? @ -No Were there social determinants of health that impacted care today? How? (Homelessness, low income, unemployed, alcoholism, drug addiction, transportation, low edu. Level, literacy, decrease access to med. care, alf, rehab)? @ -No Was there de-escalation of care discussed even if they declined (Discuss DNR or withdrawal of care, Hospice)? DNR status @ -No What co-morbidities impacted this encounter? (DM, HTN, Smoking, COPD, CAD, Cancer, CVA, ARF, Chemo, Hep., AIDS, mental health diagnosis, sleep apnea, morbid obesity)? @ -None Was patient admitted / discharged? Hospital course, mention meds given and route, prescriptions, significant lab abnormalities, going to OR and other pertinent info. @ -Discharged - 5-year-old presented for flank pain patient has obstructive 4 mm stone in the ureter. Patient was given pain control, patient's pain is improved patient discharged with pain control return parameters were discussed. Undiagnosed new problem with uncertain prognosis? @ -No Drug Therapy requiring intensive monitoring for toxicity (Heparin, Nitro, Insulin, Cardizem)? @ -No Were any procedures done? @ -No Diagnosis/symptom? @ -Right ureteral calculi Acute, or Chronic, or Acute on Chronic? @ -acute Uncomplicated (without systemic symptoms) or Complicated (systemic symptoms)? @ -Uncomplicated Side effects of treatment? @ -No Exacerbation, Progression, or Severe Exacerbation? @ -No Poses a threat to life or bodily function? How? (Chest pain, [place], [place], pneumonia, PE, COPD, DKA, ARF, appy, cholecystitis, CVA, Diverticulitis, Homicidal, Suicidal, threat to staff... and all critical care pts) @ -No - Lab Data Result diagrams: 10/09/22 13:57 10/09/22 13:57 Lab Results 10/09/22 10/09/22 10/09/22 Range/Units 13:57 13:57 13:57 WBC 11.6 H (3.8-10.6) k/uL RBC 4.70 (3.80-5.40) m/uL Hgb 13.9 (11.4-16.0) gm/dL Hct 42.3 (34.0-46.0) % MCV 90.0 (80.0-100.0) fL MCH 29.6 (25.0-35.0) pg MCHC 32.9 (31.0-37.0) g/dL RDW 12.8 (11.5-15.5) % Plt Count 362 (150-450) k/uL MPV 8.1 Neutrophils % 78 % Lymphocytes % 16 % Monocytes % 4 % Eosinophils % 1 % Basophils % 0 % Neutrophils # 9.1 H (1.3-7.7) k/uL Lymphocytes # 1.9 (1.0-4.8) k/uL Monocytes # 0.4 (0-1.0) k/uL Eosinophils # 0.1 (0-0.7) k/uL Basophils # 0.0 (0-0.2) k/uL Sodium 137 (137-145) mmol/L Potassium 4.6 (3.5-5.1) mmol/L Chloride 107 (98-107) mmol/L Carbon Dioxide 22 (22-30) mmol/L Anion Gap 8 mmol/L BUN 23 H (7-17) mg/dL Creatinine 0.62 (0.52-1.04) mg/dL Est GFR (CKD-EPI)AfAm >90 (>60 ml/min/1.73 sqM) Est GFR (CKD-EPI)NonAf >90 (>60 ml/min/1.73 sqM) Glucose 129 H (74-99) mg/dL Calcium 8.7 (8.4-10.2) mg/dL Total Bilirubin 0.7 (0.2-1.3) mg/dL AST 31 (14-36) U/L ALT 31 (4-34) U/L Alkaline Phosphatase 74 (38-126) U/L Total Protein 7.2 (6.3-8.2) g/dL Albumin 4.3 (3.5-5.0) g/dL Lipase 91 (23-300) U/L Urine Color Yellow Urine Appearance Clear (Clear) Urine pH 5.5 (5.0-8.0) Ur Specific Tofte 1.027 (1.001-1.035) Urine Protein 1+ H (Negative) Urine Glucose (UA) Negative (Negative) Urine Ketones Trace H (Negative) Urine Blood Moderate H (Negative) Urine Nitrite Negative (Negative) Urine Bilirubin Negative (Negative) Urine Urobilinogen <2.0 (<2.0) mg/dL Ur Leukocyte Esterase Negative (Negative) Urine RBC 142 H (0-5) /hpf Urine WBC 4 (0-5) /hpf Ur Squamous Epith Cells 1 (0-4) /hpf Calcium Oxalate Crystal Few H (None) /hpf Urine Mucus Many H (None) /hpf Urine Yeast (Budding) Rare H (None) /hpf Disposition Clinical Impression: Right ureteral calculus Disposition: HOME SELF-CARE Condition: Stable Instructions (If sedation given, give patient instructions): Kidney Stones (ED) Additional Instructions: Please return to the Emergency Department if symptoms worsen or any other concerns. Prescriptions: HYDROcodone/APAP 5-325MG [Schurz 5] 1 each PO Q6HR PRN #12 tab PRN Reason: Pain Ketorolac [Toradol] 10 mg PO Q8HR #15 tab Ondansetron Odt [Zofran Odt] 4 mg PO Q8HR PRN #10 tab PRN Reason: Nausea Is patient prescribed a controlled substance at d/c from ED?: Yes If prescribed controlled substance>3 days was MAPS reviewed?: Prescribed <3 Days If opioid is for acute pain is fill amount 7 days or less?: Yes If Rx opioid, was Start Talking consent form obtained?: Yes Referrals: Zohreh Connors DO [Primary Care Provider] - 1-2 days Shawn Lawrence MD [STAFF PHYSICIAN] - 1-2 days Time of Disposition: 15:02
--- NOTE | 2022-10-09 14:49 | CT ---
EXAMINATION TYPE: CT abdomen pelvis wo con CT DLP: 430.5 mGycm, Automated exposure control for dose reduction was used. DATE OF EXAM: 10/09/2022 2:34 PM COMPARISON: None CLINICAL INDICATION:Female, 67 years old with history of flank pain; Right sided flank pain TECHNIQUE: Axial CT of the abdomen and pelvis. Sagittal and coronal reformats were created on a [id number] workstation. Contrast used: None Oral contrast used: without Oral Contrast FINDINGS: LOWER CHEST: Unremarkable ABDOMEN LIVER: Hepatic cyst. GALLBLADDER AND BILE DUCTS: Unremarkable. PANCREAS: Unremarkable. SPLEEN: Unremarkable. ADRENAL GLANDS: Unremarkable. KIDNEYS AND URETERS: 4 mm thickness at the in the distal right ureter near the perivesicular junction . Nonobstructing left renal calculi measuring up to 2 mm. PELVIS BLADDER: Unremarkable REPRODUCTIVE: Unremarkable. ABDOMEN & PELVIS STOMACH AND BOWEL: No evidence of bowel obstruction. Surgical changes to gastroesophageal junction. L arge stool burden throughout the colon. PERITONEUM/RETROPERITONEUM: No evidence of pneumoperitoneum or free fluid. . VASCULATURE: No evidence of aortic aneurysm. Mild atherosclerosis of the arterial vasculature. MUSCULOSKELETAL: No acute osseous abnormalities LYMPH NODES: No gross evidence for lymphadenopathy. SOFT TISSUE/ABDOMINAL WALL: Small fat-containing umbilical hernia. IMPRESSION: 1. Mild right hydroureteronephrosis secondary obstructing 4 mm calculus near the right ureterovesicu lar junction. 2. Left nonobstructing renal calculi. 3. Large stool burden throughout the colon.
[2022-10-09 15:00] VITALS: BP 133/64; PULSE 70
== END 2022-10-09 15:16 | disposition home or self-care (01) ==
LOC: EC 13:21
DX: N20.1 Calculus of ureter (principal); I63.9 Cerebral infarction, unspecified; Z88.5 Allergy status to narcotic agent
CPT/HCPCS: 36415; 80053; 83690; 85025; 81001; 74176; 99284; 96374; 96375 ×2; 96361; J2405; J1885; J1170

== ENCOUNTER → 2023-02-16 | Outpatient (CLI) | payer MEDICARE ==
[2023-02-17 02:12] LABS: African American GFR (CKD) 103.2 (60.0-200.0); Anion Gap 10.7 mmol/L (10.00-18.00); BUN/Creat Ratio 27.47 Ratio (12.00-20.00); Blood Urea Nitrogen 19.2 mg/dL (9.0-27.0); Calcium 9.9 mg/dL (8.7-10.3); Carbon Dioxide 25.3 mmol/L (20.0-27.5); HCT 42.9 % (37.2-46.3); HGB 13.3 g/dL (12.0-15.0); MCV 90.3 fL (80.0-97.0); Mean Platelet Volume 11.5 fL (9.5-12.2); NRBC Per 100 WBC 0 /100 WBCS (0.0-0.0); Non-African American GFR(CKD) 89.1 (60.0-200.0); Platelet Count 246 X 10*3/uL (140-440); Potassium 4.3 mmol/L (3.5-5.5); RBC 4.75 X 10*6/uL (4.10-5.20); RDW 13.3 % (11.5-14.5); WBC 7.99 X 10*3/uL (4.50-10.00)
[2023-02-17 04:35] LABS: Appearance,Urine Cloudy (Clear); Bilirubin,Urine Negative (Negative); Blood,Urine Negative (Negative); Color,Urine Yellow (Yellow); Ketones,Urine Negative (Negative); Nitrite,Urine Negative (Negative); Specific Gravity,Urine 1.022 (1.001-1.030); Urobilinogen,Urine 0.2 (0.2,1.0)
[2023-02-17 05:04] LABS: Bacteria,Urine Trace /HPF (None Seen); Calcium Oxalate Crystals,Urine Present /LPF (None Seen)
== END | disposition home or self-care (01) ==
LOC: LABWHC1 12:49
PROVIDERS: ATTEND Urology
DX: Z01.812 Encounter for preprocedural laboratory examination (principal); N39.3 Stress incontinence (female) (male); R31.29 Other microscopic hematuria
CPT/HCPCS: 36415; 80048; 81001; 85027; 87086

== ENCOUNTER 2023-03-07 06:28 | Day surgery (SDC) | payer BC, MEDICARE ==
[2023-03-06 10:19] VITALS: BMI 22.4
--- NOTE | 2023-03-06 19:22 | P.GSHP ---
History of Present Illness H&P Date: 03/06/23 67 yo female with 2ppd reynaldo. She has failed kegal exercises. We discussed surgical options. We discussed TOT with obtyrx 2 graft. we discussed the mesh controversy. We discussed the risks and complications including infection, bleeding, pain, dyspareunia, injury to adjacent organs, erosion, retnetion and persistence of incontinence.. She comes for a tot with cysto. - Constitutional Constitutional: Denies chills, Denies fever - EENT Eyes: denies blurred vision, denies pain Ears, nose, mouth and throat: Denies headache, Denies sore throat - Cardiovascular Cardiovascular: Denies chest pain, Denies shortness of breath - Respiratory Respiratory: Denies cough, Denies 7 - Gastrointestinal Gastrointestinal: Denies abdominal pain, Denies diarrhea, Denies nausea, Denies vomiting - Genitourinary (Female) Genitourinary: Denies dysuria, Denies hematuria - Genitourinary (Male) Genitourinary: Denies dysuria, Denies hematuria - Musculoskeletal Musculoskeletal: Denies myalgias - Integumentary Integumentary: Denies pruritus, Denies rash - Neurological Neurological: Denies numbness, Denies weakness - Psychiatric Psychiatric: Denies anxiety, Denies depression - Endocrine Endocrine: Denies fatigue, Denies weight change Past Medical History Past Medical History: CVA/TIA, GERD/Reflux, Hearing Disorder / Deafness, Hyperlipidemia Additional Past Medical History / Comment(s): IBS, migraines, hx TIA 8 yrs ago, sinus problems, hx ulcer, hx fall 11/25/16 with fractured bilateral ankles, hx kidney stones, slightly hard of hearing. History of Any Multi-Drug Resistant Organisms: None Reported Past Surgical History: Breast Surgery, Hysterectomy Additional Past Surgical History / Comment(s): HEMORRHOIDECTOMY, Brian Fundoplasty, bilateral cataract surgery with lens implants, bilateral R (eye) surgery, right breast biopsy. Past Anesthesia/Blood Transfusion Reactions: Motion Sickness, Postoperative Nausea & Vomiting (PONV) Additional Past Anesthesia/Blood Transfusion Reaction / Comment(s): Family hx unknown - pt adopted. Past Psychological History: No Psychological Hx Reported Smoking Status: Never smoker Past Alcohol Use History: Rare Past Drug Use History: None Reported - Past Family History Mother History Unknown: Yes Family Medical History: Unable to Obtain Additional Family Medical History / Comment(s): Patient was adopted. Medications and Allergies Home Medications Medication Instructions Recorded Confirmed Type Alendronate Sodium 70 mg PO SA 03/06/23 03/06/23 History Atorvastatin [Lipitor] 20 mg PO QAM 03/06/23 03/06/23 History Cetirizine HCl [Zyrtec] 10 mg PO QAM 03/06/23 03/06/23 History Ergocalciferol [Vitamin D2 (1250 1,250 mcg PO SA 03/06/23 03/06/23 History Mcg = 90396 Iu)] Escitalopram [Lexapro] 20 mg PO HS 03/06/23 03/06/23 History Allergies Allergy/AdvReac Type Severity Reaction Status Date / Time codeine AdvReac Nausea & Verified 03/06/23 10:05 Vomiting Surgical - Exam - General well developed, well nourished, no distress - Eyes normal ocular movement, no icteric - ENT no hearing loss, no congestion - Neck no masses, trachea midline - Respiratory normal respiratory effort, clear to auscultation - Abdomen Abdomen: soft, non tender, no guarding, no rigid, no rebound - Genitourinary mobile urethra with reynaldo. positive dago test. - Integumentary no rash, no abnormal pigmentation - Neurologic no disoriented, no combative - Psychiatric oriented to time, oriented to person, oriented to place, speech is normal, memory intact Assessment and Plan Assessment: impression: REYNALDO Plan: Transobturator tape with obtyrx 2 graft and cysto.
[~2023-03-07 06:28] MED LIST changes: +AMPICILLIN 1,000 MG in SODIUM CHLORIDE 0.9% 50 ML IVPB PRN; +GENTAMICIN IVPB PRN; -LACTATED RINGERS 1,000 ML IV SCH; +SODIUM CHLORIDE 0.9% IVPB PRN
[2023-03-07] MEDS ORDERED: DEXAMETHASONE SOD PHOSPHATE 4 MG/ML 1 ML VIAL IV ONE (06:57)
[2023-03-07] MEDS ORDERED: ONDANSETRON 4 MG/2 ML VIAL IVP ONE (06:57)
[2023-03-07] MEDS ORDERED: LIDOCAINE 1% (10MG/ML) FOR IV START INTRADERMA PRN (06:57)
[2023-03-07] MEDS ORDERED: HYDROmorphone 0.5 MG/0.5 ML SYRINGE IVP PRN (07:00)
[2023-03-07] MEDS: LACTATED RINGERS 1,000 ML IV SCH (07:16)
[2023-03-07] MEDS ORDERED: VASOPRESSIN 20 UNIT/ML 1 ML VIAL SQ ONE ×2 (07:46→08:17)
[2023-03-07] MEDS ORDERED: LIDOCAINE 4% LTA KIT (4 ML) TOPICAL ONE (07:52)
[2023-03-07] MEDS ORDERED: SUCCINYLCHOLINE CHLORIDE 200 MG/10 ML VIAL IV ONE (07:52)
[2023-03-07] MEDS ORDERED: LIDOCAINE 2% INJ 20 MG/ML (2 ML VIAL) ONE (07:52)
[2023-03-07] MEDS ORDERED: MIDAZOLAM 2 MG/2 ML VIAL ONE (07:52)
[2023-03-07] MEDS ORDERED: PROPOFOL 10 MG/ML 20 ML VIAL IV ONE (07:52)
[2023-03-07] MEDS ORDERED: ePHEDrine 50 MG/ML 1 ML VIAL ONE (07:52)
[2023-03-07] MEDS ORDERED: fentaNYL (PF) 50 MCG/ML 2 ML AMP ONE (07:52)
[2023-03-07] MEDS ORDERED: GENTAMICIN 80 MG in SODIUM CHLORIDE 0.9% 500 ML 500 ML IRRIGATION ONE (08:17)
[2023-03-07] MEDS ORDERED: BACITRACIN ZINC 500 UNIT/GM OINT 28.4 GM TUBE TOPICAL ONE (08:29)
[2023-03-07] MEDS ORDERED: ONDANSETRON 4 MG/2 ML VIAL IVP PRN (08:43)
--- NOTE | 2023-03-07 08:49 | P.OP ---
Date of Procedure: 03/07/23 Preoperative Diagnosis: Stress urinary incontinence Postoperative Diagnosis: Same Procedure(s) Performed: Trans-obturator tape (obtryx2) with cystoscopy. Anesthesia: MAYTE Surgeon: Attila Hamilton Estimated Blood Loss (ml): 25 Pathology: none sent Condition: stable Disposition: PACU Indications for Procedure: Patient is 67. She has stress urinary incontinence. She has a mobile urethra. She comes for a trans-obturator tape alternatives have been discussed risks and complications including the mesh controversy have been discussed Description of Procedure: Patient brought to the operating suite. Given a general anesthetic. Placed lithotomy position with a sterile perineal and vaginal prep. A Roberts catheters introduced sterilely. The labia are sewn laterally with 2-0 silk. A vaginal speculum was placed in the vagina. The anterior vaginal mucosa was elevated off the submucosa with 7 mL of a mixture of 20 g of Pitressin and 200 mg of saline. I dissect lateral the bladder neck laterally. Make incisions in the inguinal crease at the level clitoris. I passed the introducers through the obturator foramen around the issue pubic ramus into the vagina bilaterally. I remove the Roberts catheter and perform cystoscopy to rule out bladder injury and there is none. I reintroduced the Roberts catheter. I then attached the graft to the introducers and pull the graft through the obturator foramen bilaterally. The graft sit in the mid urethra nicely. The redundant achieving is removed. The vaginal mucosa was closed with 2-0 Vicryl. The redundant graft at the inguinal incisions removed and the inguinal incisions are closed with 4-0 Vicryl. Vaginal packing is placed. The labial stitches are removed. The urine remains clear. The patient is awakened and returned recovery room good condition. She tolerated the procedure well. Blood loss was 25 mL.
[2023-03-07] MEDS: KETOROLAC 15 MG/ML 1 ML VIAL IVP PRN ×3 (10:42→22:58)
[2023-03-07] MEDS: DEXTROSE 5%-0.45% NACL 1,000 ML IV SCH (10:42)
[2023-03-07] MEDS: ATORVASTATIN 20 MG TAB PO SCH (11:08)
[2023-03-07] MEDS: LORATADINE 10 MG TAB PO SCH (11:08)
[2023-03-07] MEDS ORDERED: ESCITALOPRAM 20 MG TAB PO SCH (21:00)
[2023-03-08] MEDS: ACETAMINOPHEN TAB 325 MG TAB PO PRN ×3 (02:42→14:39)
[2023-03-08] MEDS: DEXTROSE 5%-0.45% NACL 1,000 ML IV SCH (02:43)
[2023-03-08] MEDS: KETOROLAC 15 MG/ML 1 ML VIAL IVP PRN (05:43)
[2023-03-08] MEDS: LORATADINE 10 MG TAB PO SCH (07:53)
[2023-03-08] MEDS: ATORVASTATIN 20 MG TAB PO SCH (07:56)
[2023-03-08 08:05] VITALS: BP 110/44; PULSE 75; RESP 16; TEMP 98
[2023-03-08] MEDS: LACTATED RINGERS 1,000 ML IV SCH (08:07)
--- NOTE | 2023-03-09 16:42 | P.DS ---
Providers Attending physician: Attila Hamilton Primary care physician: [facility] Course: This is 67-year-old female with history of stress urinary incontinence, underwent a trans-obturator sling by Dr. Hamilton on march 07. Patient was admitted to the hospital postoperatively. Roberts catheter was removed on postop day #1, patient was able to void with a postvoid residual of 0. She was discharged home on postoperative day #1, at time of discharge she was tolerating a diet, ambulating, pain was controlled Patient Condition at Discharge: Good Plan - Discharge Summary Discharge Rx Participant: Yes New Discharge Prescriptions: New Ketorolac [Toradol] 10 mg PO Q6HR PRN #15 tab PRN Reason: Pain Cephalexin [Keflex] 500 mg PO Q8HR #15 cap No Action Ergocalciferol [Vitamin D2 (1250 Mcg = 14141 Iu)] 1,250 mcg PO SA Alendronate Sodium 70 mg PO SA Cetirizine HCl [Zyrtec] 10 mg PO QAM Atorvastatin [Lipitor] 20 mg PO QAM Escitalopram [Lexapro] 20 mg PO HS Discharge Medication List Alendronate Sodium 70 mg PO SA 03/06/23 [History] Atorvastatin [Lipitor] 20 mg PO QAM 03/06/23 [History] Cetirizine HCl [Zyrtec] 10 mg PO QAM 03/06/23 [History] Ergocalciferol [Vitamin D2 (1250 Mcg = 05826 Iu)] 1,250 mcg PO SA 03/06/23 [History] Escitalopram [Lexapro] 20 mg PO HS 03/06/23 [History] Cephalexin [Keflex] 500 mg PO Q8HR #15 cap 03/08/23 [Rx] Ketorolac [Toradol] 10 mg PO Q6HR PRN #15 tab 03/08/23 [Rx] Activity/Diet/Wound Care/Special Instructions: No heavy lifting or straining for 4 weeks You may shower, no baths for 4 weeks Discharge Disposition: HOME SELF-CARE
[2023-03-10] MEDS ORDERED: NON FORMULARY DRUG (Alendronate Sodium [Alendronate Sodium] 70 MG Tablet) PO SCH (08:42)
== END 2023-03-08 17:00 | disposition home or self-care (01) ==
LOC: OR 06:28 → 4FBP 08:35 → OR 03-08 17:00
PROVIDERS: ATTEND Urology
DX: N39.3 Stress incontinence (female) (male) (principal); K21.9 Gastro-esophageal reflux disease without esophagitis; H91.90 Unspecified hearing loss, unspecified ear; E78.5 Hyperlipidemia, unspecified; K58.9 Irritable bowel syndrome, unspecified; K91.0 Vomiting following gastrointestinal surgery; G43.909 Migraine, unspecified, not intractable, without status migrainosus; F10.90 Alcohol use, unspecified, uncomplicated; Z86.73 Personal history of transient ischemic attack (TIA), and cerebral infarction without residual deficits; Z87.442 Personal history of urinary calculi; Z90.710 Acquired absence of both cervix and uterus; Z98.41 Cataract extraction status, right eye; Z98.42 Cataract extraction status, left eye; Z98.890 Other specified postprocedural states; Z79.899 Other long term (current) drug therapy; Z88.5 Allergy status to narcotic agent
CPT/HCPCS: 57288; C1771; J2250; J0330; J1580 ×2; J1100; J2405; J3010; J0290; J1885 ×2; J2704; J2001

== ENCOUNTER → 2023-07-18 | Outpatient (CLI) | payer MEDICARE ==
--- NOTE | 2023-07-19 09:14 | MM ---
Reason for Exam: Screening (asymptomatic). Last mammogram was performed 1 year(s) and 6 month(s) ago. Patient History: Menarche at age 12. First Full-Term at age 18. Left ovary removed at age 17. Right ovary removed at age 41. Hysterectomy at age 41. Postmenopausal. Cyst Aspiration on the Right side. Cyst Aspiration on the Left side. Excisional Biopsy on the Right side. Risk Values: Marly 5 year model risk: 1.5%. NCI Lifetime model risk: 4.5%. Prior Study Comparison: 03/18/2019 Bilateral Screening Mammogram, [facility]. 09/07/2020 Bilateral Screening Mammogram, [facility]. 01/12/2022 Bilateral Screening Mammogram, [facility]. Tissue Density: The breast tissue is heterogeneously dense. This may lower the sensitivity of mammography. Findings: Analyzed By CAD. There is no suspicious group of microcalcifications or new suspicious mass. Overall Assessment: Negative, BI-RAD 1 Management: Screening Mammogram of both breasts in [address] [facility] will attempt to contact patient to return for supplemental views and ultrasound if indicated. Patient should continue monthly self-breast exams. A clinical breast exam by your physician is recommended on an annual basis. This exam should not preclude additional follow-up of suspicious palpable abnormalities. Note on Marly scores and lifetime risk: 1. A Marly score greater than 3% is considered moderate risk. If this is the case, consider specialist referral to assess eligibility for a risk reducing agent. 2. If overall lifetime risk for the development of breast cancer is 20% or higher, the patient may qualify for future screening with alternating mammogram and breast MRI. Electronically signed and approved by: Kevin Valencia DO
== END | disposition home or self-care (01) ==
LOC: RADMAMWWP 07:09
PROVIDERS: ATTEND Family Medicine
DX: Z12.31 Encounter for screening mammogram for malignant neoplasm of breast (principal); Z78.0 Asymptomatic menopausal state
CPT/HCPCS: 77063; 77067

== ENCOUNTER → 2023-07-24 | Outpatient (CLI) | payer MEDICARE ==
[2023-07-24 14:20] LABS: African American GFR (CKD) >90 (>60 ml/min/1.73 sqM); Blood Urea Nitrogen 20 mg/dL (7-17); Non-African American GFR(CKD) 89 (>60 ml/min/1.73 sqM)
--- NOTE | 2023-07-24 16:19 | CT ---
EXAMINATION TYPE: CT abdomen w con CT DLP: 501.5 mGycm, Automated exposure control for dose reduction was used. DATE OF EXAM: 07/24/2023 3:44 PM COMPARISON: CT abdomen pelvis most recent from 10/09/2022 . CLINICAL INDICATION:Female, 68 years old with history of R10.9 ABD PAIN; Upper abdominal pain with di arrhea and constipation x 4 weeks. TECHNIQUE: Standard CT of the abdomen following the administration of 100 cc of Isovue 300 IV contr ast material and oral contrast. Coronal and sagittal reformats were performed. FINDINGS: LOWER CHEST: Posterior dependent subsegmental atelectasis is noted. ABDOMEN LIVER: Few scattered hepatic cysts with largest in the low anterior left hepatic lobe measuring up to 2.5 cm. GALLBLADDER AND BILE DUCTS: Unremarkable. PANCREAS: Unremarkable. SPLEEN: Unremarkable. ADRENAL GLANDS: Unremarkable. KIDNEYS AND URETERS: No evidence of hydronephrosis. There 2 nonobstructive 3 mm calculi within the le ft superior pole the kidneys enhance symmetrically. Contrast is demonstrated within both collecting s ystems on the delayed phase. STOMACH AND BOWEL: Postsurgical changes of the GE junction from hiatal hernia repair. Enteric contras t reaches the mid transverse colon. No focal wall thickening or surrounding inflammatory changes. Sto ol is present within the colon which limits intraluminal evaluation. No evidence of bowel obstruction . PERITONEUM: No evidence of pneumoperitoneum or free fluid. VASCULATURE: Mild atherosclerotic calcifications are present throughout the abdominal aorta and its b ranches. No evidence of aortic aneurysm. MUSCULOSKELETAL: No acute osseous abnormalities. Benign vertebral hemangioma within the T11 vertebral body. LYMPH NODES: No gross evidence for lymphadenopathy. SOFT TISSUE/ABDOMINAL WALL: Unremarkable IMPRESSION: 1. No acute abdominal process. 2. Nonobstructive left renal calculi. 3. Postsurgical changes at the GE junction from hiatal hernia repair.
== END | disposition home or self-care (01) ==
LOC: RADCTMAIN 13:34
PROVIDERS: ATTEND Family Medicine
DX: K76.0 Fatty (change of) liver, not elsewhere classified (principal); N20.0 Calculus of kidney; K44.9 Diaphragmatic hernia without obstruction or gangrene
CPT/HCPCS: 82565; 84520; 74160; 36415; Q9967

== ENCOUNTER 2023-10-15 11:20 | Day surgery (SDC) | payer MEDICARE ==
[2023-10-10 10:17] VITALS: BMI 21.6
[2023-10-15] MEDS ORDERED: LACTATED RINGERS 1,000 ML IV ONE (11:43)
[2023-10-15] MEDS ORDERED: LIDOCAINE 1% (10MG/ML) FOR IV START INTRADERMA PRN (11:46)
[2023-10-15] MEDS ORDERED: LACTATED RINGERS 1,000 ML IV SCH (11:46)
[2023-10-15 12:00] VITALS: RESP 16; TEMP 98.9
[2023-10-15] MEDS ORDERED: PROPOFOL 10 MG/ML 20 ML VIAL IV ONE (12:16)
--- NOTE | 2023-10-15 12:45 | P.OP ---
Date of Procedure: 10/15/23 Preoperative Diagnosis: screening colonoscopy Postoperative Diagnosis: diverticulosis Procedure(s) Performed: colonoscopy Anesthesia: MAC Surgeon: James Rodriguez Pathology: none sent Condition: stable Disposition: PACU Description of Procedure: the patient's placed on the endoscopy table in the lateral position. She received IV sedation. Digital rectal exam was performed. This revealed no abnormalities. Flexible colonoscope was then placed patient anus and passed throughout the entire colon. Ileocecal valve was visualized. Cecum ascending and transverse colon and this appeared normal. Scope was brought back the descending and sigmoid colon. There was extensive diverticular changes. The s cope was then brought back the rectum and this appeared normal. Scope withdrawn for patient.
[2023-10-15 13:12] VITALS: BP 117/59; PULSE 67
== END 2023-10-15 13:20 | disposition home or self-care (01) ==
LOC: ORWHC2ENDO 11:20
PROVIDERS: ATTEND Surgery
DX: Z12.11 Encounter for screening for malignant neoplasm of colon (principal); K57.30 Diverticulosis of large intestine without perforation or abscess without bleeding; K21.9 Gastro-esophageal reflux disease without esophagitis; Z86.73 Personal history of transient ischemic attack (TIA), and cerebral infarction without residual deficits; Z79.899 Other long term (current) drug therapy
CPT/HCPCS: J2704; G0121

== ENCOUNTER → 2025-04-21 | Outpatient (CLI) | payer MEDICARE ==
--- NOTE | 2025-04-21 11:50 | MM ---
Reason for Exam: Screening (asymptomatic). Last mammogram was performed 1 year(s) and 9 month(s) ago. Patient History: Menarche at age 12. First Full-Term at age 18. Left ovary removed at age 17. Right ovary removed at age 41. Hysterectomy at age 41. Postmenopausal. Cyst Aspiration on the Right side. Cyst Aspiration on the Left side. Excisional Biopsy on the Right side. Risk Values: Marly 5 year model risk: 1.5%. NCI Lifetime model risk: 4.1%. Prior Study Comparison: 09/07/2020 Bilateral Screening Mammogram, [facility]. 01/12/2022 Bilateral Screening Mammogram, [facility]. 07/18/2023 Bilateral MG 3D screening mammo w/cad, [facility]. Tissue Density: There are scattered areas of fibroglandular density. Findings: Analyzed By CAD. Right breast: Asymmetry on CC view 5.8 cm from nipple posterior depth lateral appears more conspicuous compared to prior. Area that may represent this area is stable on MLO view however. Spot compression imaging cc view 3-D right breast recommended. Left breast: There is no suspicious group of microcalcifications or new suspicious mass. Overall Assessment: Incomplete: need additional imaging evaluation, BI-RAD 0 Management: Diagnostic Mammogram of the right breast. [facility] will attempt to contact patient to return for supplemental views and ultrasound if indicated. Patient should continue monthly self-breast exams. A clinical breast exam by your physician is recommended on an annual basis. This exam should not preclude additional follow-up of suspicious palpable abnormalities. Note on Marly scores and lifetime risk: 1. A Marly score greater than 3% is considered moderate risk. If this is the case, consider specialist referral to assess eligibility for a risk reducing agent. 2. If overall lifetime risk for the development of breast cancer is 20% or higher, the patient may qualify for future screening with alternating mammogram and breast MRI. [facility], , 04/21/2025 11:47 AM. Electronically signed and approved by: Kevin Valencia DO
== END | disposition home or self-care (01) ==
LOC: RADMAMWWP 08:59
PROVIDERS: ATTEND Family Medicine
DX: Z12.31 Encounter for screening mammogram for malignant neoplasm of breast (principal); R92.323 Mammographic fibroglandular density, bilateral breasts; Z78.0 Asymptomatic menopausal state
CPT/HCPCS: 77063; 77067

== ENCOUNTER → 2025-04-24 | Outpatient (CLI) | payer MEDICARE ==
--- NOTE | 2025-04-24 08:34 | MM ---
Reason for Exam: Additional evaluation requested from abnormal screening. Last screening mammogram was performed less than 1 month ago. Patient History: Menarche at age 12. First Full-Term at age 18. Left ovary removed at age 17. Right ovary removed at age 41. Hysterectomy at age 41. Postmenopausal. Cyst Aspiration on the Right side. Cyst Aspiration on the Left side. Excisional Biopsy on the Right side. Risk Values: Marly 5 year model risk: 1.5%. NCI Lifetime model risk: 4.1%. Tissue Density: Right: The breasts are heterogeneously dense, which may obscure small masses. Findings: Analyzed By CAD. Focal asymmetry/architectural distortions upper outer quadrant 6 cm from the nipple and measuring 5 mm. 3-D slice RCC 45/7. Overall Assessment: Incomplete: need additional imaging evaluation, BI-RAD 0 Management: Diagnostic Breast Ultrasound of the right breast. Results were given to the patient verbally at the time of exam. Patient should continue monthly self-breast exams. A clinical breast exam by your physician is recommended on an annual basis. This exam should not preclude additional follow-up of suspicious palpable abnormalities. Note on Marly scores and lifetime risk: 1. A Marly score greater than 3% is considered moderate risk. If this is the case, consider specialist referral to assess eligibility for a risk reducing agent. 2. If overall lifetime risk for the development of breast cancer is 20% or higher, the patient may qualify for future screening with alternating mammogram and breast MRI. [facility], , 04/24/2025 8:26 AM. Electronically signed and approved by: Kevin Valencia DO
--- NOTE | 2025-04-24 08:53 | USB ---
Reason for Exam: Additional evaluation requested from abnormal screening. Patient History: Menarche at age 12. First Full-Term at age 18. Left ovary removed at age 17. Right ovary removed at age 41. Hysterectomy at age 41. Postmenopausal. Cyst Aspiration on the Right side. Cyst Aspiration on the Left side. Excisional Biopsy on the Right side. Risk Values: Marly 5 year model risk: 1.5%. NCI Lifetime model risk: 4.1%. Technique: Method: Targeted. Prior Study Comparison: 01/12/2022 Bilateral Screening Mammogram, [facility]. 07/18/2023 Bilateral MG 3D screening mammo w/cad, [facility]. 04/21/2025 Bilateral MG 3D screening mammo w/cad, [facility]. Findings: The upper outer quadrant of the right breast, the axilla of the right breast and the retroareolar of the right breast were scanned. Technique utilized:US breast workup limited RT Image; Ultrasound imaging of: Area of concern, retroareolar region and axilla. No finding to correlate with mammography. Short-term follow-up mammography to ensure stability. No evidence for organizing fluid collection or mass. Overall Assessment: Probably benign, BI-RAD 3 Management: Diagnostic Mammogram of the right breast in 6 months. A clinical breast exam by your physician is recommended on an annual basis and results should be correlated with mammographic findings. This exam should not preclude additional follow-up of suspicious palpable abnormalities. Results were given to the patient verbally at the time of exam. [facility], , 04/24/2025 8:51 AM. Electronically signed and approved by: Kevin Valencia DO
== END | disposition home or self-care (01) ==
LOC: RADMAMWWP 07:51
PROVIDERS: ATTEND Family Medicine
DX: R92.8 Other abnormal and inconclusive findings on diagnostic imaging of breast (principal); R92.331 Mammographic heterogeneous density, right breast; Z78.0 Asymptomatic menopausal state
CPT/HCPCS: 77061; 77065